=== PATIENT | female | born 1985 | race Caucasian/White ===

== ENCOUNTER 2017-03-18 18:52 | Emergency (ER) | payer OTHER ==
[~2017-03-18] VITALS: Ht 175.3 cm; Wt 72.6 kg
[2017-03-18 19:52] VITALS: BP 134/70
[2017-03-18] MEDS ORDERED: AMOXICILLIN875 M1 PO (19:52)
--- NOTE | 2017-03-18 19:52 | ED THROAT/DENTAL COMPLAINT ---
History of Present Illness General Chief Complaint: Sore Throat, Dental Pain Stated Complaint: SORE THROAT Source: patient Exam Limitations: no limitations Vital Signs & Intake/Output Vital Signs & Intake/Output Vital Signs Date Time Temp Pulse Resp B/P B/P Pulse O2 O2 Flow FiO2 Mean Ox Delivery Rate 03/18 2047 99.1 107 16 98 Room Air 03/18 1952 99.9 118 18 134/70 97 Room Air 03/18 1857 100.8 124 18 127/70 97 Room Air Allergies Coded Allergies: cefaclor (RASH 03/18/17) Reconcile Medications Amoxicillin 875 MG TABLET 1 TAB PO BID pharyngitis Triage Note: PT TO TRIAGE WITH C/O SORE THROAT, BODYACHES, HEADACHE x1DAY. TEMP 100.8 IN TRIAGE. STREP SWABS OBTAINED IN TRIAGE AND SENT TO LAB. Triage Nurses Notes Reviewed? yes Onset: Abrupt Duration: hour(s):, constant, continues in ED Timing: single episode today Injury Environment: work Severity: moderate, severe No Modifying Factors: none : No Patient currently breastfeeds: No HPI: 31-year-old female comes into emergency room for further evaluation of fever chills body aches and mild sore throat. Positive sick contact with coworker that was diagnosed with strep that she shared a drink with. Also another coworker that was diagnosed with viral illness. Symptoms sudden onset this afternoon at work. Denies any fever chills vomiting. Denies any abdominal pain. Generalized soreness. Denies any ear pain. Denies any runny nose or cough at this time. Past History Travel History Traveled to [place] past 21 day No Medical History Any Pertinent Medical History? see below for history Psychiatric: SUBSTANCE ABUSE Surgical History Surgical History: non-contributory Psychosocial History What is your primary language Citizen [place] Tobacco Use: Current Daily Use Daily Tobacco Use Amount/Type: => 5 Cigarettes daily Family History Hx Contributory? No Review of Systems Review of Systems Constitutional: Reports: see HPI. EENTM: Reports: see HPI. Respiratory: Reports: no symptoms. Cardiovascular: Reports: no symptoms. GI: Reports: no symptoms. Genitourinary: Reports: no symptoms. Musculoskeletal: Reports: no symptoms. Skin: Reports: no symptoms. Neurological/Psychological: Reports: no symptoms. Hematologic/Endocrine: Reports: no symptoms. Immunologic/Allergic: Reports: no symptoms. All Other Systems: Reviewed and Negative Physical Exam Physical Exam General Appearance: well developed/nourished, no apparent distress, alert Head: atraumatic, normal appearance Eyes: Bilateral: normal appearance. Nose: normal inspection Mouth/Throat: pharyngeal erythema Neck: normal inspection, supple, full range of motion Cardiovascular/Respiratory: regular rate/rhythm, no respiratory distress, tachycardia Back: normal range of motion Neurologic/Psych: awake, alert, oriented x 3, normal gait, normal mood/affect Skin: intact, normal color Core Measures ACS in differential dx? No Severe Sepsis Present: No Septic Shock Present: No Progress Differential Diagnosis: aspirated tooth, carious tooth, epiglottitis, Ludwigs angina, meningitis, odontogenic abscess, cassandra-tonsillar abscess, pharyngeal for. body, stomatitis/gingivitis, strep pharyngitis, tooth fracture, viral syndrome Plan of Care: Orders Procedure Date/time Status THROAT CULTURE W/QUICK STREP 03/18 1903 Active Comments: 03/18/2017 9:21:10 PM Symptoms are most consistent with viral illness. Patient clinically looks well. Nontoxic-appearing. In no apparent distress. Resting comfortably in room. Patient treated with amoxicillin due to positive strep exposure. Rest. Drink plenty of fluids. Heart rate improved. Related to low-grade temperature. Departure Departure Disposition: HOME OR SELF CARE Condition: Stable Clinical Impression Primary Impression: Pharyngitis Referrals: PATIENT HAS NO PRIMARY CARE DR (PCP/Family) Additional Instructions: Taking amoxicillin as prescribed. Rest. Motrin Tylenol at home. Drink plenty of fluids. Please go over all results of today's visit with your primary care doctor. Contact your primary care doctor to let them know you were here in the emergency room. There may be nonspecific findings which may not be related to your visit today here in the emergency room but may require further evaluation and chronic monitoring by your primary care doctor. If you had a laceration today the chance of foreign body always remains. You should follow-up with your primary care doctor for recheck in 3-5 days for a wound check. If you had an x-ray done there is a chance that a fracture could have been missed on initial read and you should follow-up with your primary care doctor for repeat x-rays if symptoms persist. If your blood pressure was elevated here in the emergency room please have rechecked by her primary care doctor within the next 48 hours by your primary care doctor. If you were prescribed a narcotic here in the emergency room or any type of controlled substances you're not allowed to drive while taking this medication or operate any type of heavy machinery. Narcotics can make you feel lightheaded dizziness nausea and can cause constipation. You may need to forklift picker a stool softener. Thank you for choosing [facility] emergency room. Please return to the emergency room immediately if you have any other concerns worsening of symptoms. Departure Forms: Customer Survey General Discharge Information Prescriptions: Current Visit Scripts Amoxicillin 1 TAB PO BID #20 TAB
== END 2017-03-18 21:25 ==
LOC: ERH 18:52
DX: J02.9 Acute pharyngitis, unspecified (principal); Z72.0 Tobacco use
CPT/HCPCS: 87147